=== PATIENT | male | born 1950 | race African-American/Black ===

== ENCOUNTER 2017-03-03 18:21 | Observation (INO) | payer SELFPAY ==
[~2017-03-03] VITALS: Ht 168.9 cm; Wt 74.5 kg
[~2017-03-03 18:21] MED LIST: PERCOCET 5/31 TABLET PO; PLAVIX75 MG PO
[2017-03-03 19:33] LABS: HEMATOCRIT 40.7 % (38.0-50.0); MCH 30.8 PG (29.0-34.0); MCHC 32.4 G/DL (30.0-36.0); MCV 95.1 FL (86-99); MEAN PLAT.VOLUME 9.7 uM^3 (9.0-12.4); PLATELET COUNT 209 K/uL (156-360); RBC DIS.WIDTH-CV 12.6 % (11.8-14.6); RBC DIS.WIDTH-SD 43.2 % (39-53); RED BLOOD COUNT 4.28 M/uL (4.00-5.50); WHITE BLOOD COUNT 6.7 K/uL (4.1-10.2)
[2017-03-03 19:41] LABS: CHLORIDE 110 mEq/L (99-109); POTASSIUM 3.6 mEq/L (3.7-5.4); SODIUM 142 mEq/L (136-147)
[2017-03-03 19:43] LABS: GLUCOSE 115 mg/dL (70-99)
[2017-03-03 19:44] LABS: ANION GAP 13 MEQ/L (2-14)
[2017-03-03 19:47] LABS: GFR ESTIMATE (CALCULATED) 17 mL/min/
[2017-03-03 19:48] LABS: UREA NITROGEN (BUN) 23 mg/dL (9-23)
[2017-03-03 19:54] LABS: TROP-I INTERPRETATION NEGATIVE; TROPONIN-I < 0.01 ng/mL (0.0-0.30)
[2017-03-03] MEDS ORDERED: MIRALAX17 GM PO (21:51)
[2017-03-03] MEDS ORDERED: [UNRECOGNIZED DRUG - OTHER] PO (21:52)
[2017-03-03 23:29] LABS: ADD MIUA? YES; BILIRUBIN NEGATIVE; BLOOD MODERATE; COLOR STRAW ((YELLOW)); GLUCOSE (STRIP) 50; KETONES NEGATIVE; LEUKOCYTES NEGATIVE; NITRITE NEGATIVE; PROTEIN (STRIP) 100; SPECIFIC GRAVITY 1.009 (1.000-1.030); UROBILINOGEN 0.2 MG/DL (0.2-1.0)
[2017-03-03 23:40] LABS: BACTERIA RARE /HPF; EPITHELIAL CELLS RARE /HPF; MUCUS TRACE /LPF; RED BLOOD CELLS 0-5 /HPF (0-5); WHITE BLOOD CELLS 0-5 /HPF (0-5)
[2017-03-03 23:47] LABS: URIC ACID 6.6 mg/dL (3.1-9.2)
[2017-03-03 23:48] LABS: ALKALINE PHOSPHATASE 77 IU/L (3-129); DIRECT BILIRUBIN 0.1 mg/dL (0.0-0.3); TOTAL BILIRUBIN 0.5 MG/DL (0.0-1.0)
[2017-03-04] VITALS (7 sets, daily range): BP systolic 130–147; BP diastolic 77–92
[2017-03-04 02:25] LABS: TROP-I INTERPRETATION NEGATIVE; TROPONIN-I < 0.01 ng/mL (0.0-0.30)
[2017-03-04 08:18] LABS: EOSINOPHIL (%) 10.5 % (0-5); EOSINOPHIL COUNT 0.7 K/uL (0-0.3); HEMATOCRIT 38.8 % (38.0-50.0); IMMATURE GRANULOCYTE (%) 0.1 % (0.0-0.7); INSTRUMENT ABS NEUTROPHIL CT 2.7 K/uL; LYMPHOCYTE COUNT 2.3 K/uL (1.0-2.8); MCH 30.1 PG (29.0-34.0); MCHC 31.2 G/DL (30.0-36.0); MCV 96.5 FL (86-99); MEAN PLAT.VOLUME 9.2 uM^3 (9.0-12.4); MONOCYTE (%) 14.9 % (3-12); NEUTROPHIL (%) 39.9 % (45-76); NEUTROPHIL COUNT 2.7 K/uL (1.8-6.4); PLATELET COUNT 202 K/uL (156-360); RBC DIS.WIDTH-CV 12.6 % (11.8-14.6); RBC DIS.WIDTH-SD 45.1 % (39-53); RED BLOOD COUNT 4.02 M/uL (4.00-5.50); WHITE BLOOD COUNT 6.8 K/uL (4.1-10.2)
[2017-03-04 08:47] LABS: ANION GAP 8 MEQ/L (2-14); CHLORIDE 109 MEQ/L (99-109); GFR ESTIMATE (CALCULATED) 21 mL/min/; GLUCOSE 102 mg/dL (70-99); POTASSIUM 3.5 MEQ/L (3.7-5.4); SAMPLE HEMOLYSIS CHECK 0; SAMPLE ICTERIC CHECK 0; SAMPLE LIPEMIA CHECK 0; SODIUM 140 MEQ/L (136-147); TROP-I INTERPRETATION NEGATIVE; TROPONIN-I < 0.01 ng/mL (0.0-0.30); UREA NITROGEN (BUN) 19 mg/dL (9-23)
[2017-03-05 02:05] VITALS: BP 138/84
[2017-03-05 02:06] VITALS: BP 133/90; BP 148/86
[2017-03-05 03:30] VITALS: BP 129/75
[2017-03-05 08:00] VITALS: BP 131/84
[2017-03-05 12:03] VITALS: BP 128/79
[2017-03-05] MEDS ORDERED: VENTOLIN HFA18 GM IH (13:02)
[2017-03-05] MEDS ORDERED: BENZONATATE100 MG PO (13:03)
[2017-03-05] MEDS ORDERED: TYLENOL REGULA325 MG PO (13:03)
[2017-03-05] MEDS ORDERED: FLONASE16 G1 BOTH NARES (13:04)
[2017-03-05] MEDS ORDERED: ROBITUSSIN COU237 M2 PO (13:05)
== END 2017-03-05 17:09 | disposition home or self-care (01) ==
LOC: EME 18:21 → 5WEST 22:33 → EDOF 22:33 → ENRESERV 22:38 → 5WEST 23:32 → ENPENDDIS 03-05 → 5WEST 03-05 17:09
PROVIDERS: Hospitalist; Physician Assistant
DX: R55 Syncope and collapse (principal); R05 Cough; R10.9 Unspecified abdominal pain; R11.0 Nausea; I12.9 Hypertensive chronic kidney disease with stage 1 through stage 4 chronic kidney disease, or unspecified chronic kidney disease; E11.22 Type 2 diabetes mellitus with diabetic chronic kidney disease; N17.9 Acute kidney failure, unspecified; N18.4 Chronic kidney disease, stage 4 (severe); R80.9 Proteinuria, unspecified; Z83.3 Family history of diabetes mellitus; Z80.8 Family history of malignant neoplasm of other organs or systems; G89.29 Other chronic pain; N40.0 Benign prostatic hyperplasia without lower urinary tract symptoms; Z87.828 Personal history of other (healed) physical injury and trauma; Z91.19 Patient's noncompliance with other medical treatment and regimen; D64.9 Anemia, unspecified
CPT/HCPCS: 70450; 71010; 71250; 74176; 80048; 80076; 81003; 82436; 84133; 84300; 84484; 84550; 85025; 85027; 93005; 99281; 99285; G0378; J1644; J2270; J7030; J7040

== ENCOUNTER 2017-11-02 20:07 | Observation (INO) | payer SELFPAY ==
[~2017-11-02] VITALS: Ht 167.6 cm; Wt 77.9 kg
[~2017-11-02 20:07] MED LIST changes: +BENZONATATE100 MG PO; +FLONASE16 G1 BOTH NARES; +MIRALAX17 GM PO; +ROBITUSSIN COU237 M2 PO; +TYLENOL REGULA325 MG PO; +VENTOLIN HFA18 GM IH; +[UNRECOGNIZED DRUG - OTHER] PO
[2017-11-02 21:01] LABS: BASOPHIL (%) 0.5 % (0-1); EOSINOPHIL (%) 3.4 % (0-5); EOSINOPHIL COUNT 0.3 K/uL (0-0.3); HEMATOCRIT 43.9 % (38.0-50.0); IMMATURE GRANULOCYTE (%) 0.2 % (0.0-0.7); LYMPHOCYTE (%) 13.8 % (15-42); LYMPHOCYTE COUNT 1.2 K/uL (1.0-2.8); MCHC 31.9 G/DL (30.0-36.0); MCV 97.1 FL (86-99); MONOCYTE (%) 8.1 % (3-12); MONOCYTE COUNT 0.7 K/uL (0-0.8); NEUTROPHIL COUNT 6.4 K/uL (1.8-6.4); PLATELET COUNT 208 K/uL (156-360); RBC DIS.WIDTH-CV 13.2 % (11.8-14.6); RBC DIS.WIDTH-SD 47.6 % (39-53); RED BLOOD COUNT 4.52 M/uL (4.00-5.50); WHITE BLOOD COUNT 8.6 K/uL (4.1-10.2)
[2017-11-02 21:09] LABS: ALBUMIN 4.3 g/dL (3.2-4.8); CHLORIDE 107 mEq/L (99-109); POTASSIUM 3.7 mEq/L (3.7-5.4); SODIUM 138 mEq/L (136-147)
[2017-11-02 21:10] LABS: MAGNESIUM 2.3 mg/dL (1.3-2.7)
[2017-11-02 21:12] LABS: GLUCOSE 146 mg/dL (70-99); TOTAL PROTEIN 7.9 g/dL (6.4-8.3)
[2017-11-02 21:13] LABS: TOTAL BILIRUBIN 0.7 mg/dL (0.0-1.0)
[2017-11-02 21:15] LABS: ALKALINE PHOSPHATASE 104 IU/L (3-129); CREATININE 4.1 mg/dL (0.6-1.3); PHOSPHORUS 3.3 mg/dL (2.5-4.9)
[2017-11-02 21:16] LABS: UREA NITROGEN (BUN) 25 mg/dL (9-23)
[2017-11-02 21:17] LABS: AST (GOT) 12 IU/L (2-34); GFR ESTIMATE (CALCULATED) 15 mL/min/ (58.99-99999)
[2017-11-02 21:18] LABS: ALT (GPT) 9 IU/L (3-49)
[2017-11-02 21:24] LABS: TROP-I INTERPRETATION NEGATIVE; TROPONIN-I < 0.01 ng/mL (0.0-0.30)
[2017-11-03] MEDS ORDERED: [UNRECOGNIZED DRUG - REMARK] (00:33)
[2017-11-03 03:51] VITALS: BP 133/75
[2017-11-03 05:11] LABS: BASOPHIL (%) 0.7 % (0-1); BASOPHIL COUNT 0.1 K/uL (0-0.1); EOSINOPHIL (%) 3.3 % (0-5); EOSINOPHIL COUNT 0.3 K/uL (0-0.3); HEMATOCRIT 41.7 % (38.0-50.0); IMMATURE GRANULOCYTE (%) 0.1 % (0.0-0.7); LYMPHOCYTE (%) 18.3 % (15-42); LYMPHOCYTE COUNT 1.4 K/uL (1.0-2.8); MCH 30.3 PG (29.0-34.0); MCHC 31.2 G/DL (30.0-36.0); MCV 97.2 FL (86-99); MONOCYTE (%) 10.7 % (3-12); MONOCYTE COUNT 0.8 K/uL (0-0.8); NEUTROPHIL (%) 66.9 % (45-76); NEUTROPHIL COUNT 5.1 K/uL (1.8-6.4); PLATELET COUNT 208 K/uL (156-360); RBC DIS.WIDTH-CV 13.1 % (11.8-14.6); RBC DIS.WIDTH-SD 46.3 % (39-53); RED BLOOD COUNT 4.29 M/uL (4.00-5.50); WHITE BLOOD COUNT 7.6 K/uL (4.1-10.2)
[2017-11-03 05:29] LABS: TROP-I INTERPRETATION NEGATIVE; TROPONIN-I < 0.01 ng/mL (0.0-0.30)
[2017-11-03 05:32] LABS: CHLORIDE 109 MEQ/L (99-109); CREATININE 3.7 MG/DL (0.6-1.3); GFR ESTIMATE (CALCULATED) 21 mL/min/ (58.99-99999); GLUCOSE 120 mg/dL (70-99); SODIUM 142 MEQ/L (136-147); UREA NITROGEN (BUN) 26 mg/dL (9-23)
[2017-11-03 07:42] VITALS: BP 113/70
[2017-11-03 11:39] VITALS: BP 131/96
[2017-11-03 12:40] LABS: BENZODIAZEPINES, URINE SCREEN Negative (200 ng/mL)
[2017-11-03 13:56] LABS: TROP-I INTERPRETATION NEGATIVE; TROPONIN-I < 0.01 ng/mL (0.0-0.30)
== END 2017-11-03 14:25 | disposition home or self-care (01) ==
LOC: EDBD 20:07 → EME 20:07 → EDOF 11-03 02:19 → ENRESERV 11-03 02:21 → 4SOUTH 11-03 03:32 → ENPENDDIS 11-03 10:49 → 4SOUTH 11-03 14:25
PROVIDERS: Emergency Medicine; Hospitalist; Internal Medicine
DX: R55 Syncope and collapse (principal); T40.2X5A Adverse effect of other opioids, initial encounter; I12.0 Hypertensive chronic kidney disease with stage 5 chronic kidney disease or end stage renal disease; N18.5 Chronic kidney disease, stage 5; R73.03 Prediabetes; Q61.3 Polycystic kidney, unspecified
CPT/HCPCS: 70450; 71046; 74176; 80048; 80053; 80306 90; 83735; 84100; 84484; 85025; 85027; 93005; 99281; 99285; G0378; J1644